=== PATIENT | male | born 1945 | race African-American/Black ===

== ENCOUNTER 2017-05-05 17:19 | Emergency (ER) | payer SELFPAY ==
[~2017-05-05] VITALS: Ht 175.3 cm; Wt 102.0 kg
[2017-05-05 17:25] VITALS: BP 119/53
== END 2017-05-05 21:00 | disposition left against medical advice (07) ==
LOC: ER 17:19
DX: J00 Acute nasopharyngitis [common cold] (principal); Z53.21 Procedure and treatment not carried out due to patient leaving prior to being seen by health care provider